=== PATIENT | female | born 1940 | race Caucasian/White ===

== ENCOUNTER 2017-06-13 05:05 | Emergency (ER) | payer OTHER ==
[~2017-06-13] VITALS: Ht 162.6 cm; Wt 81.5 kg
[~2017-06-13 05:05] MED LIST: ADULT LOW DOSE81 M1 PO; BENICAR HCT 201 EACH; CELEBREX200 MG PO; COQ10 SG 100 S1 EACH PO; CYMBALTA30 MG PO; Cymbalta PO; FEMARA2.5 MG PO; FEMORA PO; Feosol PO; IRON PO; LUTEIN; METFORMIN HCL500 MG PO; OMEPRAZOLE40 M1 PO; PERCOCET 5/31 TABLET PO; PHENERGAN W/COD10 ML PO; PRESERVISION S1 EACH PO; PRINIVIL20 MG PO; Protonix PO; SIMVASTATIN40 M1 PO; SIMVASTATIN40 MG PO; SLEEPING PILL; STOOL SOFT-STI1 EACH PO; VALIUM5 MG PO; VICODIN,LORT1 TABLET PO; VITAMIN B12-FO1 EACH PO; XANAX0.5 MG PO; Zestril,Prinivil PO; Zocor PO; [UNRECOGNIZED DRUG - OTHER] PO; [UNRECOGNIZED DRUG - OTHER] PO
[2017-06-13 08:41] VITALS: BP 143/77
== END 2017-06-13 08:41 | disposition home or self-care (01) ==
LOC: EME 05:05
DX: S30.0XXA Contusion of lower back and pelvis, initial encounter (principal); S00.01XA Abrasion of scalp, initial encounter; W17.89XA Other fall from one level to another, initial encounter; Z85.3 Personal history of malignant neoplasm of breast; Z90.11 Acquired absence of right breast and nipple; I10 Essential (primary) hypertension; E78.5 Hyperlipidemia, unspecified; E11.9 Type 2 diabetes mellitus without complications; Z79.84 Long term (current) use of oral hypoglycemic drugs; Z87.891 Personal history of nicotine dependence
CPT/HCPCS: 72220; 99281; 99284

== ENCOUNTER → 2017-12-01 | Outpatient (CLI) | payer OTHER ==
[~2017-12-01] MED LIST changes: +ASPIR 8181 M1 PO; +CARTIA XT120 MG PO; +CYMBALTA60 MG PO; +FEOSOL325 MG PO
[2017-12-01 08:12] LABS: HEMATOCRIT 29.3 % (36.0-46.0); HEMOGLOBIN 9.8 G/DL (11.9-15.5); MCH 32.2 PG (29.0-34.0); MCHC 33.4 G/DL (30.0-36.0); MCV 96.4 FL (83-99); PLATELET COUNT 219 K/uL (156-360); RBC DIS.WIDTH-CV 12.9 % (11.8-14.6); RED BLOOD COUNT 3.04 M/uL (3.80-5.20); WHITE BLOOD COUNT 21.6 K/uL (4.1-10.2)
[2017-12-04 14:46] LABS: Flow Clinical Information NOT PROVIDED (()); Flow Number of Markers 22 (()); Flow Spec Viability 96 % (()); Flow Specimen Type LYMPH NODE (())
== END | disposition home or self-care (01) ==
LOC: OPR 07:34 → EDSTATUS 08:00
PROVIDERS: Internal Medicine Hematology & Oncology; Nurse Practitioner Adult Health
PROC: 07BC3ZX Excision of Pelvis Lymphatic, Percutaneous Approach, Diagnostic (ICD-10-PCS; principal; 2017-12-01)
DX: R59.0 Localized enlarged lymph nodes (principal); C91.10 Chronic lymphocytic leukemia of B-cell type not having achieved remission; M10.9 Gout, unspecified; M06.221 Rheumatoid bursitis, right elbow
CPT/HCPCS: 77012; 85027; 85999; 88305; J3010

== ENCOUNTER 2018-01-26 13:24 | Inpatient (IN) | payer OTHER ==
[~2018-01-26] VITALS: Ht 170.2 cm; Wt 95.1 kg
[2018-01-26] VITALS (8 sets, daily range): BP systolic 96–141; BP diastolic 62–87
[2018-01-26 14:37] LABS: BASOPHIL (%) 0.1 % (0-1); EOSINOPHIL (%) 0 % (0-5); HEMATOCRIT 22.9 % (36.0-46.0); HEMOGLOBIN 7.6 G/DL (11.9-15.5); IMMATURE GRANULOCYTE (%) 0.5 % (0.0-0.7); LYMPHOCYTE (%) 3.7 % (15-42); LYMPHOCYTE COUNT 0.4 K/uL (1.0-2.8); MCH 32.3 PG (29.0-34.0); MCHC 33.2 G/DL (30.0-36.0); MCV 97.4 FL (83-99); MONOCYTE (%) 1.9 % (3-12); MONOCYTE COUNT 0.2 K/uL (0-0.8); NEUTROPHIL (%) 93.8 % (45-76); NEUTROPHIL COUNT 10.3 K/uL (1.8-6.4); PLATELET COUNT 156 K/uL (156-360); RBC DIS.WIDTH-SD 45.9 % (39-53); RED BLOOD COUNT 2.35 M/uL (3.80-5.20)
[2018-01-26 14:40] LABS: ALBUMIN 2.9 g/dL (3.2-4.8); CHLORIDE 109 mEq/L (99-109); SODIUM 134 mEq/L (136-147)
[2018-01-26 14:42] LABS: GLUCOSE 277 mg/dL (70-99)
[2018-01-26 14:43] LABS: TOTAL PROTEIN 4.4 g/dL (6.4-8.3)
[2018-01-26 14:44] LABS: TOTAL BILIRUBIN 0.3 mg/dL (0.0-1.0)
[2018-01-26 14:46] LABS: ALKALINE PHOSPHATASE 64 IU/L (3-129); CREATININE 2.3 mg/dL (0.6-1.3); GFR ESTIMATE (CALCULATED) 22 mL/min/
[2018-01-26 14:47] LABS: UREA NITROGEN (BUN) 52 mg/dL (9-23)
[2018-01-26 14:48] LABS: AST (GOT) 52 IU/L (2-34)
[2018-01-26 14:49] LABS: ALT (GPT) 38 IU/L (3-49)
[2018-01-26 14:51] LABS: POTASSIUM 6.4 mEq/L (3.7-5.4)
[2018-01-26 14:53] LABS: TROP-I INTERPRETATION NEGATIVE; TROPONIN-I < 0.01 ng/mL (0.0-0.30)
[2018-01-26 15:23] LABS: CHLORIDE 108 mEq/L (99-109); POTASSIUM 5.3 mEq/L (3.7-5.4); SODIUM 136 mEq/L (136-147)
[2018-01-26 15:24] LABS: GLUCOSE 352 mg/dL (70-99)
[2018-01-26 15:28] LABS: CREATININE 2.4 mg/dL (0.6-1.3); GFR ESTIMATE (CALCULATED) 21 mL/min/
[2018-01-26 15:29] LABS: UREA NITROGEN (BUN) 58 mg/dL (9-23)
[2018-01-26 17:58] LABS: BASOPHIL (%) 0 % (0-1); EOSINOPHIL (%) 0 % (0-5); IMMATURE GRANULOCYTE (%) 0.7 % (0.0-0.7); LYMPHOCYTE (%) 4.2 % (15-42); LYMPHOCYTE COUNT 0.4 K/uL (1.0-2.8); MCH 32.4 PG (29.0-34.0); MCHC 33.3 G/DL (30.0-36.0); MCV 97.2 FL (83-99); MONOCYTE (%) 2.4 % (3-12); MONOCYTE COUNT 0.2 K/uL (0-0.8); NEUTROPHIL (%) 92.7 % (45-76); NEUTROPHIL COUNT 7.7 K/uL (1.8-6.4); PLATELET COUNT 152 K/uL (156-360); RBC DIS.WIDTH-SD 46.6 % (39-53); RED BLOOD COUNT 2.47 M/uL (3.80-5.20); WHITE BLOOD COUNT 8.3 K/uL (4.1-10.2)
[2018-01-26 18:08] LABS: PTT 24.1 SEC (25-37)
[2018-01-26 18:10] LABS: ALBUMIN 2.7 g/dL (3.2-4.8); CHLORIDE 109 mEq/L (99-109); POTASSIUM 5.4 mEq/L (3.7-5.4); SODIUM 136 mEq/L (136-147)
[2018-01-26 18:11] LABS: AMYLASE 23 IU/L (1-118); MAGNESIUM 2.1 mg/dL (1.3-2.7)
[2018-01-26 18:13] LABS: GLUCOSE 199 mg/dL (70-99); TOTAL PROTEIN 4.2 g/dL (6.4-8.3)
[2018-01-26 18:16] LABS: ALKALINE PHOSPHATASE 76 IU/L (3-129); CREATININE 2.3 mg/dL (0.6-1.3); GFR ESTIMATE (CALCULATED) 22 mL/min/; PHOSPHORUS 5.4 mg/dL (2.5-4.9)
[2018-01-26 18:17] LABS: UREA NITROGEN (BUN) 68 mg/dL (9-23)
[2018-01-26 18:20] LABS: CREATINE KINASE 46 IU/L (1-294); LIPASE 13 U/L (1.0-51.0); TROP-I INTERPRETATION NEGATIVE; TROPONIN-I < 0.01 ng/mL (0.0-0.30)
[2018-01-26 18:28] LABS: ALT (GPT) 125 IU/L (3-49); AST (GOT) 187 IU/L (2-34); TOTAL BILIRUBIN 0.8 mg/dL (0.0-1.0)
[2018-01-26 18:53] LABS: IMMUNOGLOBULIN G 161 MG/DL (650-1600); IMMUNOGLOBULIN M 255 MG/DL (50-300)
[2018-01-26 19:04] LABS: HIGH-SENS C-REACTIVE PROTEIN 1.92 MG/DL (0.02-0.20); LACTATE DEHYDROGENASE 377 IU/L (20-246); TRIGLYCERIDES 111 MG/DL (Normal: <150)
[2018-01-26 19:17] LABS: THYROTROPIN (TSH) 4.5 MIU/L (0.4-5.5)
[2018-01-26 19:39] LABS: FIBRINOGEN 220 mg/dL (150-450)
[2018-01-26 23:15] LABS: COMMENTS - BLOOD GASES A+C+; DEVICE VENT; FI02 50 %; MECHANICAL RATE 14 resp/min; MODE ACVC; PCO2 41 mm Hg (35-45); PEEP 5 CM/H20; PO2 148 mm Hg (80-100); SITE LR; TIDAL VOLUME 450 ML; TOTAL RESP RATE 14 resp/min; pH 7.35 (7.35-7.45)
[2018-01-26 23:16] LABS: BASE EXCESS -2.8 mEq/L (-3 to +3); BICARBONATE 22.6 mEq/L (22-26); CARBOXY HGB 0 % (0-5); METHEMOGLOBIN 0.4 % (0-1.5); O2 SATURATION (CALCULATED) 96.8 % (95-99)
[2018-01-27] VITALS (24 sets, daily range): BP systolic 111–208; BP diastolic 52–108
[2018-01-27 01:27] LABS: APPEARANCE CLOUDY ((CLEAR)); BILIRUBIN NEGATIVE; BLOOD SMALL; COLOR AMBER ((YELLOW)); GLUCOSE (STRIP) NEGATIVE; KETONES NEGATIVE; LEUKOCYTES NEGATIVE; NITRITE NEGATIVE; PROTEIN (STRIP) >=500; SPECIFIC GRAVITY 1.023 (1.000-1.030); UROBILINOGEN 0.2 MG/DL (0.2-1.0)
[2018-01-27 03:08] LABS: BACTERIA NONE SEEN /HPF; EPITHELIAL CELLS 2+ /HPF; MUCUS NONE SEEN /LPF; RED BLOOD CELLS 0-5 /HPF (0-5); UCUL ADDED? NO; WHITE BLOOD CELLS NONE SEEN /HPF (0-5)
[2018-01-27 05:34] LABS: BASOPHIL (%) 0 % (0-1); EOSINOPHIL (%) 0 % (0-5); HEMATOCRIT 23.2 % (36.0-46.0); HEMOGLOBIN 7.3 G/DL (11.9-15.5); IMMATURE GRANULOCYTE (%) 0.5 % (0.0-0.7); LYMPHOCYTE (%) 4.9 % (15-42); LYMPHOCYTE COUNT 0.5 K/uL (1.0-2.8); MCH 31.1 PG (29.0-34.0); MCHC 31.5 G/DL (30.0-36.0); MCV 98.7 FL (83-99); MONOCYTE (%) 7.7 % (3-12); MONOCYTE COUNT 0.7 K/uL (0-0.8); NEUTROPHIL (%) 86.9 % (45-76); NEUTROPHIL COUNT 8.4 K/uL (1.8-6.4); PLATELET COUNT 117 K/uL (156-360); RBC DIS.WIDTH-CV 13.1 % (11.8-14.6); RBC DIS.WIDTH-SD 46.6 % (39-53); RED BLOOD COUNT 2.35 M/uL (3.80-5.20); WHITE BLOOD COUNT 9.6 K/uL (4.1-10.2)
[2018-01-27 06:05] LABS: ALBUMIN 2.5 G/DL (3.2-4.8); ALKALINE PHOSPHATASE 65 IU/L (3-129); ALT (GPT) 97 IU/L (3-49); AST (GOT) 95 IU/L (2-34); CHLORIDE 108 MEQ/L (99-109); CREATININE 2.2 MG/DL (0.6-1.3); GFR ESTIMATE (CALCULATED) 23 mL/min/; GLUCOSE 205 mg/dL (70-99); POTASSIUM 5.4 MEQ/L (3.7-5.4); SODIUM 139 MEQ/L (136-147); TOTAL BILIRUBIN 0.4 MG/DL (0.0-1.0); TOTAL PROTEIN 3.8 G/DL (6.4-8.3); UREA NITROGEN (BUN) 52 mg/dL (9-23)
[2018-01-28] VITALS (25 sets, daily range): BP systolic 114–174; BP diastolic 52–89
[2018-01-28 06:08] LABS: ALBUMIN 2.5 G/DL (3.2-4.8); ALKALINE PHOSPHATASE 55 IU/L (3-129); ALT (GPT) 78 IU/L (3-49); CHLORIDE 107 MEQ/L (99-109); CREATINE KINASE 38 IU/L (1-294); GLUCOSE 180 mg/dL (70-99); MAGNESIUM 1.9 mg/dl (1.3-2.7); PHOSPHORUS 5.5 mg/dL (2.5-4.9); POTASSIUM 4.9 MEQ/L (3.7-5.4); SODIUM 138 MEQ/L (136-147); UREA NITROGEN (BUN) 70 mg/dL (9-23); URIC ACID 8.9 mg/dL (3.1-9.2)
[2018-01-28 06:10] LABS: AST (GOT) 42 IU/L (2-34); CREATININE 2.7 MG/DL (0.6-1.3); GFR ESTIMATE (CALCULATED) 18 mL/min/; TOTAL BILIRUBIN 0.5 MG/DL (0.0-1.0)
[2018-01-28 06:24] LABS: BASOPHIL (%) 0.1 % (0-1); EOSINOPHIL (%) 0 % (0-5); HEMATOCRIT 23.8 % (36.0-46.0); HEMOGLOBIN 7.9 G/DL (11.9-15.5); IMMATURE GRANULOCYTE (%) 1.7 % (0.0-0.7); LYMPHOCYTE (%) 4.1 % (15-42); LYMPHOCYTE COUNT 0.7 K/uL (1.0-2.8); MCH 31.7 PG (29.0-34.0); MCHC 33.2 G/DL (30.0-36.0); MCV 95.6 FL (83-99); MONOCYTE (%) 3.1 % (3-12); MONOCYTE COUNT 0.5 K/uL (0-0.8); NEUTROPHIL COUNT 14.9 K/uL (1.8-6.4); PLATELET COUNT 101 K/uL (156-360); RBC DIS.WIDTH-SD 45.4 % (39-53); RED BLOOD COUNT 2.49 M/uL (3.80-5.20); WHITE BLOOD COUNT 16.3 K/uL (4.1-10.2)
[2018-01-28 19:03] LABS: HEMATOCRIT 31.7 % (36.0-46.0); MCH 31.4 PG (29.0-34.0); MCHC 34.7 G/DL (30.0-36.0); PLATELET COUNT 99 K/uL (156-360); RBC DIS.WIDTH-CV 14.6 % (11.8-14.6); RBC DIS.WIDTH-SD 48.5 % (39-53); WHITE BLOOD COUNT 14.5 K/uL (4.1-10.2)
[2018-01-28 19:04] LABS: MCV 90.6 FL (83-99)
[2018-01-29] VITALS (10 sets, daily range): BP systolic 137–179; BP diastolic 74–108
[2018-01-29 06:18] LABS: BASOPHIL (%) 0.2 % (0-1); EOSINOPHIL (%) 0.1 % (0-5); HEMATOCRIT 30.1 % (36.0-46.0); HEMOGLOBIN 10.3 G/DL (11.9-15.5); LYMPHOCYTE COUNT 0.9 K/uL (1.0-2.8); MCH 31.6 PG (29.0-34.0); MCHC 34.2 G/DL (30.0-36.0); MCV 92.3 FL (83-99); MONOCYTE (%) 6.1 % (3-12); MONOCYTE COUNT 0.8 K/uL (0-0.8); NEUTROPHIL (%) 83.6 % (45-76); NRBC (%) 0.2 /100 WBC (0-0); PLATELET COUNT 95 K/uL (156-360); RBC DIS.WIDTH-CV 14.9 % (11.8-14.6); RBC DIS.WIDTH-SD 50.4 % (39-53); RED BLOOD COUNT 3.26 M/uL (3.80-5.20); WHITE BLOOD COUNT 13.2 K/uL (4.1-10.2)
[2018-01-29 06:55] LABS: ALBUMIN 2.7 G/DL (3.2-4.8); ALKALINE PHOSPHATASE 53 IU/L (3-129); ALT (GPT) 56 IU/L (3-49); CHLORIDE 107 MEQ/L (99-109); CREATININE 2.5 MG/DL (0.6-1.3); GFR ESTIMATE (CALCULATED) 20 mL/min/; GLUCOSE 186 mg/dL (70-99); POTASSIUM 4.5 MEQ/L (3.7-5.4); SODIUM 143 MEQ/L (136-147); TOTAL BILIRUBIN 0.6 MG/DL (0.0-1.0); TOTAL PROTEIN 4.3 G/DL (6.4-8.3); UREA NITROGEN (BUN) 78 mg/dL (9-23)
[2018-01-29 07:02] LABS: AST (GOT) 17 IU/L (2-34)
[2018-01-30] VITALS (14 sets, daily range): BP systolic 155–197; BP diastolic 72–92
[2018-01-30 05:12] LABS: BASOPHIL (%) 0.3 % (0-1); EOSINOPHIL (%) 0 % (0-5); HEMOGLOBIN 10.3 G/DL (11.9-15.5); IMMATURE GRANULOCYTE (%) 4.7 % (0.0-0.7); LYMPHOCYTE (%) 6.9 % (15-42); LYMPHOCYTE COUNT 0.9 K/uL (1.0-2.8); MCH 30.4 PG (29.0-34.0); MCHC 33.2 G/DL (30.0-36.0); MCV 91.4 FL (83-99); MONOCYTE (%) 8.3 % (3-12); NEUTROPHIL (%) 79.8 % (45-76); NRBC (%) 0.2 /100 WBC (0-0); PLATELET COUNT 89 K/uL (156-360); RBC DIS.WIDTH-CV 14.9 % (11.8-14.6); RED BLOOD COUNT 3.39 M/uL (3.80-5.20); WHITE BLOOD COUNT 12.5 K/uL (4.1-10.2)
[2018-01-30 06:18] LABS: ALKALINE PHOSPHATASE 56 IU/L (3-129); ALT (GPT) 37 IU/L (3-49); AST (GOT) 11 IU/L (2-34); CHLORIDE 109 MEQ/L (99-109); CREATININE 2.1 MG/DL (0.6-1.3); GFR ESTIMATE (CALCULATED) 24 mL/min/; GLUCOSE 171 mg/dL (70-99); PHOSPHORUS 5.9 mg/dL (2.5-4.9); POTASSIUM 4.2 MEQ/L (3.7-5.4); SODIUM 143 MEQ/L (136-147); TOTAL BILIRUBIN 0.6 MG/DL (0.0-1.0); TOTAL PROTEIN 4.4 G/DL (6.4-8.3); UREA NITROGEN (BUN) 86 mg/dL (9-23)
[2018-01-30 06:21] LABS: MAGNESIUM 2.3 mg/dl (1.3-2.7)
[2018-01-31] VITALS (10 sets, daily range): BP systolic 123–178; BP diastolic 66–82
[2018-01-31 05:21] LABS: HEMATOCRIT 32.5 % (36.0-46.0); MCH 31.3 PG (29.0-34.0); MCHC 33.8 G/DL (30.0-36.0); MCV 92.3 FL (83-99); PLATELET COUNT 85 K/uL (156-360); RBC DIS.WIDTH-CV 14.8 % (11.8-14.6); RBC DIS.WIDTH-SD 49.8 % (39-53); RED BLOOD COUNT 3.52 M/uL (3.80-5.20); WHITE BLOOD COUNT 12.3 K/uL (4.1-10.2)
[2018-01-31 05:44] LABS: ALBUMIN 2.8 G/DL (3.2-4.8); ALKALINE PHOSPHATASE 49 IU/L (3-129); ALT (GPT) 30 IU/L (3-49); AST (GOT) 13 IU/L (2-34); CHLORIDE 109 MEQ/L (99-109); CREATININE 1.8 MG/DL (0.6-1.3); GFR ESTIMATE (CALCULATED) 29 mL/min/; GLUCOSE 136 mg/dL (70-99); SODIUM 141 MEQ/L (136-147); TOTAL BILIRUBIN 0.7 MG/DL (0.0-1.0); TOTAL PROTEIN 4.4 G/DL (6.4-8.3); UREA NITROGEN (BUN) 84 mg/dL (9-23)
[2018-01-31 06:16] LABS: ABS NEUTROPHIL COUNT 10.2; ANISOCYTOSIS NONE SEEN; BASOPHILS 0.9 %; EOSINOPHIL ABS CT 0.1; EOSINOPHILS 0.9 % (0-5.0); HYPERSEGMENTATION 3+; LYMPHOCYTES 6.1 % (15.0-45.0); MONOCYTES 7.8 % (0-9.0); MYELOCYTES 1.7 %; PLAT.SUFFICIENCY DECREASED; SEG.NEUTROPHILS 82.6 % (46.0-76.0)
[2018-02-01 03:12] VITALS: BP 170/76
[2018-02-01 05:23] LABS: HEMATOCRIT 30.8 % (36.0-46.0); HEMOGLOBIN 10.4 G/DL (11.9-15.5); MCH 31.1 PG (29.0-34.0); MCHC 33.8 G/DL (30.0-36.0); MCV 92.2 FL (83-99); PLATELET COUNT 67 K/uL (156-360); RBC DIS.WIDTH-CV 14.3 % (11.8-14.6); RBC DIS.WIDTH-SD 48.5 % (39-53); RED BLOOD COUNT 3.34 M/uL (3.80-5.20); WHITE BLOOD COUNT 8.9 K/uL (4.1-10.2)
[2018-02-01 05:41] LABS: ALBUMIN 2.9 G/DL (3.2-4.8); ALKALINE PHOSPHATASE 55 IU/L (3-129); ALT (GPT) 21 IU/L (3-49); AST (GOT) 11 IU/L (2-34); CHLORIDE 107 MEQ/L (99-109); GFR ESTIMATE (CALCULATED) 26 mL/min/; GLUCOSE 178 mg/dL (70-99); PHOSPHORUS 6.9 mg/dL (2.5-4.9); POTASSIUM 4.4 MEQ/L (3.7-5.4); SODIUM 138 MEQ/L (136-147); TOTAL BILIRUBIN 0.7 MG/DL (0.0-1.0); TOTAL PROTEIN 4.2 G/DL (6.4-8.3); UREA NITROGEN (BUN) 95 mg/dL (9-23)
[2018-02-01 06:25] LABS: ABS NEUTROPHIL COUNT 8.2; ANISOCYTOSIS NONE SEEN; BAND NEUTROPHILS 1.7 % (0-8.0); EOSINOPHIL ABS CT 0; LYMPHOCYTES 1.8 % (15.0-45.0); MONOCYTES 4.4 % (0-9.0); MYELOCYTES 1.7 %; PLAT.SUFFICIENCY DECREASED; SEG.NEUTROPHILS 90.4 % (46.0-76.0); SMUDGE CELLS 1.7
[2018-02-01 07:54] VITALS: BP 168/77
[2018-02-01 11:17] VITALS: BP 162/66
[2018-02-01] MEDS ORDERED: DELTASONE20 M1 PO (11:58)
[2018-02-01] MEDS ORDERED: IMDUR30 MG PO (12:04)
== END 2018-02-01 14:10 | disposition home health service (06) | DRG 981 ==
LOC: EME 13:24 → CATH 14:50 → EME 14:50 → ENRESERV 14:55 → 2SOUTH 14:55 → 4WEST 14:55 → ENRESERV 15:03 → 4WEST 15:49 → CANRESERV 01-30 19:01 → ENRESERV 01-30 19:01 → CANRESERV 01-30 19:25 → ENRESERV 01-31 09:26 → 4EAST 01-31 11:54 → ENPENDDIS 02-01 → 4EAST 02-01 14:10
PROVIDERS: Emergency Medicine; Family Medicine; Internal Medicine; Internal Medicine Cardiovascular Disease
PROC: 02HK3NZ Insertion of Intracardiac Pacemaker into Right Ventricle, Percutaneous Approach (ICD-10-PCS; principal; 2018-01-26)
PROC: 5A1935Z Respiratory Ventilation, Less than 24 Consecutive Hours (ICD-10-PCS; 2018-01-26)
PROC: 0BH17EZ Insertion of Endotracheal Airway into Trachea, Via Natural or Artificial Opening (ICD-10-PCS; 2018-01-26)
PROC: 30233N1 Transfusion of Nonautologous Red Blood Cells into Peripheral Vein, Percutaneous Approach (ICD-10-PCS; 2018-01-28)
DX: T88.6XXA Anaphylactic reaction due to adverse effect of correct drug or medicament properly administered, initial encounter (principal); T45.1X5A Adverse effect of antineoplastic and immunosuppressive drugs, initial encounter; J96.00 Acute respiratory failure, unspecified whether with hypoxia or hypercapnia; K72.00 Acute and subacute hepatic failure without coma; I44.2 Atrioventricular block, complete; N17.0 Acute kidney failure with tubular necrosis; E87.5 Hyperkalemia; I46.8 Cardiac arrest due to other underlying condition; E86.0 Dehydration; D69.6 Thrombocytopenia, unspecified; R00.1 Bradycardia, unspecified; D64.9 Anemia, unspecified; N05.8 Unspecified nephritic syndrome with other morphologic changes; I12.9 Hypertensive chronic kidney disease with stage 1 through stage 4 chronic kidney disease, or unspecified chronic kidney disease; E11.22 Type 2 diabetes mellitus with diabetic chronic kidney disease; N18.3 Chronic kidney disease, stage 3 (moderate); C91.10 Chronic lymphocytic leukemia of B-cell type not having achieved remission; I27.20 Pulmonary hypertension, unspecified; I08.0 Rheumatic disorders of both mitral and aortic valves; E78.5 Hyperlipidemia, unspecified; F32.9 Major depressive disorder, single episode, unspecified; F41.9 Anxiety disorder, unspecified; J43.9 Emphysema, unspecified; K21.9 Gastro-esophageal reflux disease without esophagitis; M10.9 Gout, unspecified; M19.90 Unspecified osteoarthritis, unspecified site; Z96.653 Presence of artificial knee joint, bilateral; E66.9 Obesity, unspecified; Z68.32 Body mass index [BMI] 32.0-32.9, adult; Z87.891 Personal history of nicotine dependence; Z85.3 Personal history of malignant neoplasm of breast; Z90.13 Acquired absence of bilateral breasts and nipples; Z79.82 Long term (current) use of aspirin; Z85.72 Personal history of non-Hodgkin lymphomas
CPT/HCPCS: 36600; 71045; 74230; 76770; 78582; 80047; 80048 91; 80053; 80202; 81003; 82150; 82272; 82550; 82550 91; 82570; 82784; 82948; 83010 90; 83520 90; 83605; 83615; 83690; 83735; 83880; 83883 90; 84100; 84145 90; 84156; 84443; 84478; 84484; 84550; 84999; 85014; 85018; 85025; 85025 91; 85027; 85384; 85610; 85730; 86141; 86850; 86900; 86901; 86920; 87040; 87070; 87205; 87641; 92611 GN; 93005; 93306; 94002; 94003; 94640; 94760; 94799; 97530 GP; 99281; 99285; A9540; A9567; C1751; C1894; C1898; J0171; J0330; J0360; J1200; J1644; J1815; J1940; J2250; J2543; J2704; J2920; J2930; J3010; J3370; J7030; J7050; J7070; P9016; S0028

== ENCOUNTER 2018-02-02 17:21 | Emergency (ER) | payer OTHER ==
[~2018-02-02] VITALS: Ht 167.6 cm; Wt 90.9 kg
[~2018-02-02 17:21] MED LIST changes: +DELTASONE20 M1 PO; +IMDUR30 MG PO
[2018-02-02 18:29] LABS: BASOPHIL (%) 0.1 % (0-1); EOSINOPHIL (%) 1.2 % (0-5); EOSINOPHIL COUNT 0.1 K/uL (0-0.3); HEMOGLOBIN 10.2 G/DL (11.9-15.5); IMMATURE GRANULOCYTE (%) 2.5 % (0.0-0.7); LYMPHOCYTE (%) 3.3 % (15-42); LYMPHOCYTE COUNT 0.3 K/uL (1.0-2.8); MCH 31.5 PG (29.0-34.0); MCV 92.6 FL (83-99); MONOCYTE (%) 3.5 % (3-12); MONOCYTE COUNT 0.4 K/uL (0-0.8); NEUTROPHIL (%) 89.4 % (45-76); NEUTROPHIL COUNT 9.1 K/uL (1.8-6.4); PLATELET COUNT 75 K/uL (156-360); RBC DIS.WIDTH-SD 47.4 % (39-53); RED BLOOD COUNT 3.24 M/uL (3.80-5.20); WHITE BLOOD COUNT 10.2 K/uL (4.1-10.2)
[2018-02-02 18:37] LABS: CHLORIDE 110 mEq/L (99-109); POTASSIUM 4.2 mEq/L (3.7-5.4); SODIUM 142 mEq/L (136-147)
[2018-02-02 18:39] LABS: GLUCOSE 133 mg/dL (70-99)
[2018-02-02 18:43] LABS: CREATININE 1.6 mg/dL (0.6-1.3); GFR ESTIMATE (CALCULATED) 33 mL/min/
[2018-02-02 18:44] LABS: UREA NITROGEN (BUN) 89 mg/dL (9-23)
[2018-02-02 20:56] VITALS: BP 200/106
== END 2018-02-02 20:57 | disposition home or self-care (01) ==
LOC: EME 17:21
PROVIDERS: Emergency Medicine
DX: K62.5 Hemorrhage of anus and rectum (principal); I10 Essential (primary) hypertension; E11.9 Type 2 diabetes mellitus without complications; J43.9 Emphysema, unspecified; M19.90 Unspecified osteoarthritis, unspecified site; F41.9 Anxiety disorder, unspecified; F32.9 Major depressive disorder, single episode, unspecified; Z79.82 Long term (current) use of aspirin; Z87.891 Personal history of nicotine dependence; Z87.442 Personal history of urinary calculi; Z85.3 Personal history of malignant neoplasm of breast; Z90.49 Acquired absence of other specified parts of digestive tract; Z90.11 Acquired absence of right breast and nipple; Z96.653 Presence of artificial knee joint, bilateral; Z88.5 Allergy status to narcotic agent; Z88.1 Allergy status to other antibiotic agents; Z91.09 Other allergy status, other than to drugs and biological substances; Z91.040 Latex allergy status
CPT/HCPCS: 80048; 85025; 99281; 99283

== ENCOUNTER 2018-02-04 14:47 | Inpatient (IN) | payer OTHER ==
[~2018-02-04] VITALS: Ht 167.6 cm; Wt 94.3 kg
[2018-02-04 15:46] LABS: HEMATOCRIT 28.1 % (36.0-46.0); HEMOGLOBIN 9.4 G/DL (11.9-15.5); MCH 31.2 PG (29.0-34.0); MCHC 33.5 G/DL (30.0-36.0); MCV 93.4 FL (83-99); PLATELET COUNT 92 K/uL (156-360); RBC DIS.WIDTH-CV 13.5 % (11.8-14.6); RBC DIS.WIDTH-SD 46.2 % (39-53); RED BLOOD COUNT 3.01 M/uL (3.80-5.20)
[2018-02-04 16:11] LABS: TROP-I INTERPRETATION NEGATIVE; TROPONIN-I 0.02 ng/mL (0.0-0.30)
[2018-02-04 16:14] LABS: CHLORIDE 107 MEQ/L (99-109); CREATININE 1.7 MG/DL (0.6-1.3); GFR ESTIMATE (CALCULATED) 31 mL/min/; GLUCOSE 188 mg/dL (70-99); POTASSIUM 4.3 MEQ/L (3.7-5.4); SODIUM 139 MEQ/L (136-147); UREA NITROGEN (BUN) 76 mg/dL (9-23)
[2018-02-04] MEDS ORDERED: DELTASONE20 M1 PO (18:15)
[2018-02-04] MEDS ORDERED: PREDNISONE10 MG PO (18:16)
[2018-02-04] MEDS ORDERED: COZAAR50 MG PO (18:17)
[2018-02-04] MEDS ORDERED: ZOVIRAX400 MG PO (18:18)
[2018-02-04] MEDS ORDERED: COMPAZINE10 MG PO (18:18)
[2018-02-04] MEDS ORDERED: PROAIR HFA8.5 GM IH (18:18)
[2018-02-04] MEDS ORDERED: CENTRUM SILVER1 EAC3 PO (18:18)
[2018-02-04 19:51] LABS: TROP-I INTERPRETATION NEGATIVE; TROPONIN-I 0.02 ng/mL (0.0-0.30)
[2018-02-04 23:21] VITALS: BP 175/77
[2018-02-05 03:01] LABS: HEMATOCRIT 22.7 % (36.0-46.0); HEMOGLOBIN 7.9 G/DL (11.9-15.5); MCHC 34.8 G/DL (30.0-36.0); MCV 91.9 FL (83-99); PLATELET COUNT 67 K/uL (156-360); RBC DIS.WIDTH-CV 13.4 % (11.8-14.6); RBC DIS.WIDTH-SD 45.1 % (39-53); RED BLOOD COUNT 2.47 M/uL (3.80-5.20); WHITE BLOOD COUNT 8.4 K/uL (4.1-10.2)
[2018-02-05 03:14] LABS: CHLORIDE 112 mEq/L (99-109); POTASSIUM 4.1 mEq/L (3.7-5.4); SODIUM 141 mEq/L (136-147)
[2018-02-05 03:16] LABS: GLUCOSE 137 mg/dL (70-99)
[2018-02-05 03:20] LABS: CREATININE 1.6 mg/dL (0.6-1.3); GFR ESTIMATE (CALCULATED) 33 mL/min/
[2018-02-05 03:21] LABS: UREA NITROGEN (BUN) 73 mg/dL (9-23)
[2018-02-05 03:31] LABS: TROP-I INTERPRETATION NEGATIVE; TROPONIN-I 0.01 ng/mL (0.0-0.30)
[2018-02-05 04:20] VITALS: BP 143/65
[2018-02-05 08:13] VITALS: BP 196/88
[2018-02-05 11:19] VITALS: BP 180/82
[2018-02-05 14:30] VITALS: BP 138/63
[2018-02-05 16:52] VITALS: BP 162/68
[2018-02-05 20:00] VITALS: BP 172/84
[2018-02-06] VITALS (8 sets, daily range): BP systolic 138–195; BP diastolic 50–93
[2018-02-06 12:56] LABS: BASOPHIL (%) 0.1 % (0-1); EOSINOPHIL (%) 0.3 % (0-5); HEMATOCRIT 26.2 % (36.0-46.0); HEMOGLOBIN 8.7 G/DL (11.9-15.5); IMMATURE GRANULOCYTE (%) 1.8 % (0.0-0.7); LYMPHOCYTE (%) 4.5 % (15-42); LYMPHOCYTE COUNT 0.6 K/uL (1.0-2.8); MCH 31.3 PG (29.0-34.0); MCHC 33.2 G/DL (30.0-36.0); MCV 94.2 FL (83-99); MONOCYTE (%) 5.2 % (3-12); MONOCYTE COUNT 0.7 K/uL (0-0.8); NEUTROPHIL (%) 88.1 % (45-76); NEUTROPHIL COUNT 11.5 K/uL (1.8-6.4); RBC DIS.WIDTH-CV 13.7 % (11.8-14.6); RED BLOOD COUNT 2.78 M/uL (3.80-5.20)
[2018-02-06 12:58] LABS: PLATELET COUNT 105 K/uL (156-360)
[2018-02-06 13:56] LABS: CHLORIDE 109 MEQ/L (99-109); CREATININE 1.7 MG/DL (0.6-1.3); GFR ESTIMATE (CALCULATED) 31 mL/min/; GLUCOSE 117 mg/dL (70-99); POTASSIUM 4.2 MEQ/L (3.7-5.4); SODIUM 139 MEQ/L (136-147); UREA NITROGEN (BUN) 67 mg/dL (9-23)
[2018-02-07] VITALS (7 sets, daily range): BP systolic 143–208; BP diastolic 67–98
[2018-02-07 05:30] LABS: BASOPHIL (%) 0.2 % (0-1); EOSINOPHIL (%) 0.3 % (0-5); HEMATOCRIT 22.4 % (36.0-46.0); HEMOGLOBIN 7.4 G/DL (11.9-15.5); IMMATURE GRANULOCYTE (%) 1.6 % (0.0-0.7); LYMPHOCYTE (%) 9.2 % (15-42); LYMPHOCYTE COUNT 1.1 K/uL (1.0-2.8); MCH 30.6 PG (29.0-34.0); MCV 92.6 FL (83-99); MONOCYTE (%) 7.1 % (3-12); MONOCYTE COUNT 0.8 K/uL (0-0.8); NEUTROPHIL (%) 81.6 % (45-76); NEUTROPHIL COUNT 9.4 K/uL (1.8-6.4); PLATELET COUNT 87 K/uL (156-360); RBC DIS.WIDTH-CV 13.7 % (11.8-14.6); RBC DIS.WIDTH-SD 46.3 % (39-53); RED BLOOD COUNT 2.42 M/uL (3.80-5.20); WHITE BLOOD COUNT 11.6 K/uL (4.1-10.2)
[2018-02-07 05:52] LABS: CHLORIDE 111 MEQ/L (99-109); CREATININE 1.8 MG/DL (0.6-1.3); GFR ESTIMATE (CALCULATED) 29 mL/min/; GLUCOSE 96 mg/dL (70-99); POTASSIUM 3.9 MEQ/L (3.7-5.4); SODIUM 141 MEQ/L (136-147); UREA NITROGEN (BUN) 64 mg/dL (9-23)
[2018-02-08] VITALS (12 sets, daily range): BP systolic 160–203; BP diastolic 76–96
[2018-02-09] VITALS (7 sets, daily range): BP systolic 144–208; BP diastolic 74–98
[2018-02-10] VITALS (14 sets, daily range): BP systolic 108–208; BP diastolic 55–95
[2018-02-10 09:09] LABS: HEMATOCRIT 22.6 % (36.0-46.0); HEMOGLOBIN 7.4 G/DL (11.9-15.5); MCHC 32.7 G/DL (30.0-36.0); MCV 94.6 FL (83-99); PLATELET COUNT 102 K/uL (156-360); RBC DIS.WIDTH-CV 14.1 % (11.8-14.6); RBC DIS.WIDTH-SD 48.3 % (39-53); RED BLOOD COUNT 2.39 M/uL (3.80-5.20); WHITE BLOOD COUNT 8.8 K/uL (4.1-10.2)
[2018-02-10 14:37] LABS: IRON 81 MCG/DL (35-150); TRANSFERRIN (TIBC) 162.8 mg/dL (215-380); TRANSFERRIN SATUR. 50 % (20-55)
[2018-02-10 15:24] LABS: FOLIC ACID (FOLATE) > 22.0 NG/ML (5.0-22.0)
[2018-02-11 00:04] VITALS: BP 111/66
[2018-02-11 01:11] VITALS: BP 117/58
[2018-02-11 03:59] VITALS: BP 158/73
[2018-02-11 05:29] LABS: HEMATOCRIT 25.7 % (36.0-46.0); HEMOGLOBIN 8.7 G/DL (11.9-15.5); MCH 31.1 PG (29.0-34.0); MCHC 33.9 G/DL (30.0-36.0); MCV 91.8 FL (83-99); PLATELET COUNT 103 K/uL (156-360); RBC DIS.WIDTH-CV 15.1 % (11.8-14.6); RBC DIS.WIDTH-SD 50.5 % (39-53); WHITE BLOOD COUNT 9.2 K/uL (4.1-10.2)
[2018-02-11 06:03] LABS: CHLORIDE 112 MEQ/L (99-109); CREATININE 2.1 MG/DL (0.6-1.3); GFR ESTIMATE (CALCULATED) 24 mL/min/; GLUCOSE 96 mg/dL (70-99); POTASSIUM 4.3 MEQ/L (3.7-5.4); SODIUM 142 MEQ/L (136-147); UREA NITROGEN (BUN) 52 mg/dL (9-23)
[2018-02-11 07:39] VITALS: BP 139/65
[2018-02-11 11:11] VITALS: BP 123/61
[2018-02-11] MEDS ORDERED: LOSARTAN POTAS100 MG PO (13:37)
[2018-02-11] MEDS ORDERED: FUROSEMIDE20 MG PO (13:37)
[2018-02-11] MEDS ORDERED: CLONIDINE HCL0.1 MG PO (13:37)
[2018-02-11] MEDS ORDERED: APRESOLINE50 MG PO (13:37)
[2018-02-11] MEDS ORDERED: IMDUR60 MG PO (13:37)
== END 2018-02-11 16:28 | disposition home or self-care (01) | DRG 291 ==
LOC: EME 14:47 → 4SOUTH 21:50 → EDOF 21:50 → ENRESERV 21:53 → 4SOUTH 23:06
PROVIDERS: Hospitalist; Internal Medicine; Nurse Practitioner Family
DX: I13.0 Hypertensive heart and chronic kidney disease with heart failure and stage 1 through stage 4 chronic kidney disease, or unspecified chronic kidney disease (principal); I16.0 Hypertensive urgency; E78.5 Hyperlipidemia, unspecified; E11.22 Type 2 diabetes mellitus with diabetic chronic kidney disease; J44.9 Chronic obstructive pulmonary disease, unspecified; C90.00 Multiple myeloma not having achieved remission; D69.59 Other secondary thrombocytopenia; R51 Headache; E87.5 Hyperkalemia; N18.3 Chronic kidney disease, stage 3 (moderate); N17.9 Acute kidney failure, unspecified; I08.2 Rheumatic disorders of both aortic and tricuspid valves; D80.1 Nonfamilial hypogammaglobulinemia; E55.9 Vitamin D deficiency, unspecified; I27.20 Pulmonary hypertension, unspecified; I71.00 Dissection of unspecified site of aorta; I50.9 Heart failure, unspecified; R06.09 Other forms of dyspnea; R00.2 Palpitations; F32.9 Major depressive disorder, single episode, unspecified; M19.90 Unspecified osteoarthritis, unspecified site; R07.9 Chest pain, unspecified; F41.9 Anxiety disorder, unspecified; D63.1 Anemia in chronic kidney disease; Z79.899 Other long term (current) drug therapy; C91.11 Chronic lymphocytic leukemia of B-cell type in remission; Z85.3 Personal history of malignant neoplasm of breast; Z90.710 Acquired absence of both cervix and uterus; Z87.891 Personal history of nicotine dependence; Z85.028 Personal history of other malignant neoplasm of stomach; Z91.048 Other nonmedicinal substance allergy status; Z87.892 Personal history of anaphylaxis; Z85.72 Personal history of non-Hodgkin lymphomas; Z90.13 Acquired absence of bilateral breasts and nipples; Z87.442 Personal history of urinary calculi
CPT/HCPCS: 71046; 76770; 80048; 82607; 82746; 82948; 83540; 83880; 84466; 84484; 85025; 85027; 86850; 86900; 86901; 86920; 93005; 93975; 94799; 99281; 99285; G0378; J0360; J1644; J1815; J1885; J7512; P9016; Q0164

== ENCOUNTER 2018-02-13 02:37 | Emergency (ER) | payer OTHER ==
[~2018-02-13] VITALS: Ht 167.6 cm; Wt 98.4 kg
[~2018-02-13 02:37] MED LIST changes: +APRESOLINE50 MG PO; +CENTRUM SILVER1 EAC3 PO; +CLONIDINE HCL0.1 MG PO; +COMPAZINE10 MG PO; +COZAAR50 MG PO; +FUROSEMIDE20 MG PO; +IMDUR60 MG PO; +LOSARTAN POTAS100 MG PO; +PREDNISONE10 MG PO; +PROAIR HFA8.5 GM IH; +ZOVIRAX400 MG PO
[2018-02-13 04:00] VITALS: BP 186/97
== END 2018-02-13 03:55 | disposition left against medical advice (07) ==
LOC: EME → EDBD 02:37 → EME 03:55
DX: R03.0 Elevated blood-pressure reading, without diagnosis of hypertension (principal); Z53.21 Procedure and treatment not carried out due to patient leaving prior to being seen by health care provider